=== PATIENT | female | born 1985 | race Caucasian/White ===

== ENCOUNTER 2022-09-28 12:53 | Emergency (ER) | payer BC, SELFPAY ==
[2022-09-28 13:53] VITALS: BP 128/80; PULSE 85; RESP 16; TEMP 36.6; O2SAT 98
--- NOTE | 2022-09-28 15:29 | ED_ITS ---
HPI - General Adult General Time Seen by Provider: 15:29 Date Seen: 09/28/22 Chief complaint: Dizziness/Vertigo Stated complaint: Vertigo Time Seen by Provider: 09/28/22 15:10 Source: patient Mode of arrival: ambulatory Limitations: no limitations History of Present Illness HPI narrative: Patient is a 28 year white female who has had dizziness today, she has really not had any illness recently. She was concerned about her thyroid perhaps being abnormal. She feels better today, she is at this hour rather than this morning, she has taken no medications, has had no fever chills cough, no chest pain, no breathing problem, no neurologic complaints. Does not have a history of vertigo or dizzy problems. she has not had any ear pain Related Data Home Medications Medication Instructions Recorded Confirmed No Known Home Medications 09/28/22 09/28/22 Previous Rx's Medication Instructions Recorded meclizine 50 mg tablet (Antivert) 25 mg PO TID #20 tabs 09/28/22 Allergies Allergy/AdvReac Type Severity Reaction Status Date / Time No Known Drug Allergies Allergy Verified 09/28/22 13:58 Review of Systems Status of ROS: Reports: 6 or more systems reviewed and unremarkable except as noted in History and below PFSH PFSH Social History Smoking Status: Unknown if ever smoked Do you use any of these nicotine containing products: None Second hand tobacco smoke exposure: No How often do you have a drink containing alcohol: never AUDIT-C Alcohol total score: 0 Exam Narrative: Exam Narrative: Objective: Patient's vital signs unremarkable, alert orient x3, noncyanotic, very pleasant HEENT is unremarkable facial asymmetry mouth clear neck is supple chest is clear no rales or wheezing Heart rhythm regular heart murmur Abdomen benign soft Extremities are no edema neurologic nonfocal good peripheral perfusion noted no skin rashes noted skin warm and dry in the periphery Const: Vital Signs, click to edit/add: Vital Signs - 24 hr 09/28/22 13:53 Temperature 97.8 F Pulse Rate [Right Pulse Oximeter] 85 Respiratory Rate 16 Blood Pressure [Ri ght Upper Arm] 128/80 Pulse Oximetry 98 Oxygen Delivery Me thod Room Air Course Vital Signs Vital signs: Initial Vital Signs Temperature 97.8 F 09/28/22 13:53 Temperature Source Temporal Artery Scan 09/28/22 13:53 Pulse Rate 85 09/28/22 13:53 Respiratory Rate 16 09/28/22 13:53 Blood Pressure 128/80 09/28/22 13:53 Blood Pressure Mean 96 09/28/22 13:53 Blood Pressure Position Sitting 09/28/22 13:53 Pulse Oximetry 98 09/28/22 13:53 Oxygen Delivery Method 09/28/22 13:53 Vital Signs Temperature 97.8 F 09/28/22 13:53 Pulse Rate 85 09/28/22 13:53 Respiratory Rate 16 09/28/22 13:53 Blood Pressure 128/80 09/28/22 13:53 Pulse Oximetry 98 09/28/22 13:53 Oxygen Delivery Method 09/28/22 13:53 Temperature 97.8 F 09/28/22 13:53 Pulse Rate 85 09/28/22 13:53 Respiratory Rate 16 09/28/22 13:53 Blood Pressure 128/80 09/28/22 13:53 Pulse Oximetry 98 09/28/22 13:53 Oxygen Delivery Method 09/28/22 13:53 Medical Decision Making MDM Narrative Medical decision making narrative: Patient woke with dizziness today seems better now. She is able to take oral fluids. She has had no COVID/influenza/RSV symptoms. I think at this point be reasonable to check her blood work make sure her electrolytes are and CBC are normal, as well as her TSH. We can call her back with results of these I am going to give her Antivert now she has a ride home. Given that she is not vomiting she is able to the eat and drink adequately I think we can let her go home and observe. Follow up with primary care in next 2-3 days will call in some Antivert medication for as well the pharmacy. Return to ED not improving changes or concerns Addendum: The patient was called back with her TSH is 7.4 she will talk to her regular doctor with about this, and workup her thyroid function. I suspect this is probably not related to her symptomatology today. But she will pursue that further with her regular physician Lab Data Labs: Lab Results 09/28/22 09/28/22 09/28/22 Range/Units 15:46 15:46 15:46 WBC 7.71 (4.50-11.00) K/uL RBC 5.18 (4.00-5.20) m/uL Hgb 15.4 (12.0-16.0) gm/dL Hct 45.9 (33.0-51.0) % MCV 89 (80-100) fL MCH 30 (26-34) pg MCHC 34 (32-36) gm/dL RDW Coeff of Jaye 12.3 (11.5-15.5) % Plt Count 260 (140-440) K/uL Neut % (Auto) 69.8 (42.0-72.0) % Lymph % (Auto) 21.1 (20-44) % Buchanan % (Auto) 7.9 (0.0-11.0) % Eos % (Auto) 0.8 (0.0-7.0) % Baso % (Auto) 0.1 (0.0-3.0) % Neut # (Auto) 5.38 (1.7-7.0) K/uL Lymph # (Auto) 1.63 (0.90-2.90) K/uL Buchanan # (Auto) 0.60 (0.00-0.90) K/UL Eos # (Auto) 0.06 (0.00-0.50) K/uL Baso # (Auto) 0.01 (0.00-0.30) K/uL Sodium 140 (135-149) mmol/L Potassium 4.7 (3.6-5.1) mmol/L Chloride 106 (96-114) mmol/L Carbon Dioxide 26 (20-32) mmol/L BUN 11 (5-24) mg/dL Creatinine 0.7 (0.5-1.5) mg/dL Estimated Creat Clear 98.05 Estimated GFR 113 ml/min Glucose 95 (60-115) mg/dL Calcium 9.5 (8.4-10.6) mg/dL Total Bilirubin 0.5 (0.1-1.5) mg/dL Direct Bilirubin 0.2 (0.0-0.5) mg/dL AST 44 H (12-35) U/L ALT 28 (4-35) U/L Alkaline Phosphatase 79 (40-150) U/L C-Reactive Protein < 0.5 L (0.5-1.0) mg/dL Total Protein 7.4 (6.0-8.3) g/dL Albumin 4.8 (3.3-5.0) g/dL TSH (0.270-4.20) uIU/mL 09/28/22 Range/Units 15:46 WBC (4.50-11.00) K/uL RBC (4.00-5.20) m/uL Hgb (12.0-16.0) gm/dL Hct (33.0-51.0) % MCV (80-100) fL MCH (26-34) pg MCHC (32-36) gm/dL RDW Coeff of Jaye (11.5-15.5) % Plt Count (140-440) K/uL Neut % (Auto) (42.0-72.0) % Lymph % (Auto) (20-44) % Buchanan % (Auto) (0.0-11.0) % Eos % (Auto) (0.0-7.0) % Baso % (Auto) (0.0-3.0) % Neut # (Auto) (1.7-7.0) K/uL Lymph # (Auto) (0.90-2.90) K/uL Buchanan # (Auto) (0.00-0.90) K/UL Eos # (Auto) (0.00-0.50) K/uL Baso # (Auto) (0.00-0.30) K/uL Sodium (135-149) mmol/L Potassium (3.6-5.1) mmol/L Chloride (96-114) mmol/L Carbon Dioxide (20-32) mmol/L BUN (5-24) mg/dL Creatinine (0.5-1.5) mg/dL Estimated Creat Clear Estimated GFR ml/min Glucose (60-115) mg/dL Calcium (8.4-10.6) mg/dL Total Bilirubin (0.1-1.5) mg/dL Direct Bilirubin (0.0-0.5) mg/dL AST (12-35) U/L ALT (4-35) U/L Alkaline Phosphatase (40-150) U/L C-Reactive Protein (0.5-1.0) mg/dL Total Protein (6.0-8.3) g/dL Albumin (3.3-5.0) g/dL TSH 7.410 H (0.270-4.20) uIU/mL Discharge Plan Discharge Clinical Impression: Dizziness Patient Disposition: Home w/ Parent or Adult Condition: Stable Additional Instructions: Light activity, recheck with regular doctor in next 3-4 days, Antivert as needed for dizziness. Push fluids. We will call back with any markedly abnormal lab results. Return to ED sooner problems or concerns. Activity Level: Light activity Discharge Diet: Regular Prescriptions: New Antivert 50 mg tablet 25 mg PO TID Qty: 20 0RF No Action No Known Home Medications Stand Alone Forms: [employer]SAFE Info Instructions
[2022-09-28] MEDS: MECLIZINE HCL 25 MG TABLET PO (15:47)
[2022-09-28 16:16] LABS: Chloride* 106 mmol/L (96-114)
[2022-09-28 16:17] LABS: Potassium* 4.7 mmol/L (3.6-5.1); Sodium* 140 mmol/L (135-149)
[2022-09-28 16:19] LABS: Creatinine* 0.7 mg/dL (0.5-1.5); Est. Creatinine Clearance* 98.05; Estimated Glomerular Filt Rate 113 ml/min
[2022-09-28 16:21] LABS: Blood Urea Nitrogen* 11 mg/dL (5-24); Calcium* 9.5 mg/dL (8.4-10.6); Carbon Dioxide* 26 mmol/L (20-32); Glucose* 95 mg/dL (60-115)
[2022-09-28 16:24] LABS: C Reactive Protein* < 0.5 mg/dL (0.5-1.0)
[2022-09-28 17:42] LABS: Basophils Absolute Auto 0.01 K/uL (0.00-0.30); Basophils Percent Auto 0.1 % (0.0-3.0); Eosinophils Absolute Auto 0.06 K/uL (0.00-0.50); Eosinophils Percent Auto 0.8 % (0.0-7.0); Hematocrit 45.9 % (33.0-51.0); Hemoglobin* 15.4 gm/dL (12.0-16.0); Immature Granulocytes Abs Auto 0.02 K/uL (0.00-0.30); Immature Granulocytes Pct Auto 0.3 %; Lymphocytes Absolute Auto 1.63 K/uL (0.90-2.90); Lymphocytes Percent Auto 21.1 % (20-44); Mean Corpuscular HGB Conc 34 gm/dL (32-36); Mean Corpuscular Hemoglobin 30 pg (26-34); Mean Corpuscular Volume 89 fL (80-100); Monocytes Percent Auto 7.9 % (0.0-11.0); Neutrophils Absolute Auto 5.38 K/uL (1.7-7.0); Neutrophils Percent Auto 69.8 % (42.0-72.0); Platelet Count* 260 K/uL (140-440); RDW Coefficient of Variation % 12.3 % (11.5-15.5); Red Blood Count 5.18 m/uL (4.00-5.20); White Blood Count* 7.71 K/uL (4.50-11.00)
[2022-09-28 17:43] LABS: Albumin* 4.8 g/dL (3.3-5.0)
[2022-09-28 17:46] LABS: Aspartate Amino Transferase* 44 U/L (12-35); Bilirubin Direct* 0.2 mg/dL (0.0-0.5); Bilirubin Total* 0.5 mg/dL (0.1-1.5); Total Protein* 7.4 g/dL (6.0-8.3)
[2022-09-28 17:47] LABS: Alanine Aminotransferase* 28 U/L (4-35); Alkaline Phosphatase* 79 U/L (40-150)
[2022-09-28 17:50] LABS: Slide Review Reflex No
== END 2022-09-28 16:03 | disposition home or self-care (01) ==
LOC: ED 15:50
PROVIDERS: Emergency Provider Family Medicine
DX: R42 Dizziness and giddiness (principal)
CPT/HCPCS: 36415; 80048; 80076; 84443; 85025; 86140; 99283; 99284; A9270

== ENCOUNTER 2023-07-23 13:51 | Outpatient (CLI) | payer BC, SELFPAY | END 2023-07-23 13:52 | disposition home or self-care (01) | LOC: NFLDREF 07-29 11:21 | PROVIDERS: Visit Provider Otolaryngology | DX: R42 Dizziness and giddiness (principal) | CPT/HCPCS: 84443; 86039; 86431; 86618 ==

== ENCOUNTER 2023-08-03 14:48 | Outpatient (CLI) | payer BC, SELFPAY ==
--- NOTE | 2023-08-03 15:15 | CRLHL7_ITS ---
For Patients: As a result of the Cures Act, medical imaging exams and procedure reports are released immediately into your electronic medical record. You may view this report before your referring provider. If you have questions, please contact your health care provider. INDICATION: Dizziness and giddiness. TECHNIQUE: Brain and temporal bone MRI with contrast. The following sequences were obtained: DWI and ADC mapping sequences. Sagittal T1 weighted sequence. Axial FLAIR and AYALA T2 weighted sequences of the whole brain. 3D T2-weighted CISS sequence of the temporal bones. Thin section T1 weighted axial and coronal pre-contrast and post-contrast sequences of the temporal bones. T1 weighted post-contrast sequence(s) of the whole brain. 20 cc of Dotarem gadolinium based contrast agent was used. COMPARISON : None. FINDINGS: The membranous labyrinths are normal in appearance, with no signal abnormality or malformation. No mass or pathologic enhancement within the internal auditory canals or the cerebellopontine angle cisterns. The cisternal and canalicular segments of the 7th/8th cranial nerve complexes are normal in appearance. The other imaged cranial nerve segments are normal in appearance. Brainstem and cerebellum are normal. No evidence of acute ischemia. No evidence of acute or chronic intracranial blood products. No mass or pathologic intracranial enhancement elsewhere within the brain. No intracranial signal abnormality. No hydrocephalus or extra-axial collections. The pituitary gland, parasellar structures and optic chiasm are normal. All the major intracranial vascular structures demonstrate normal flow-related signal. The orbital contents are normal. No calvarial or skull base marrow replacing process. A left maxillary sinus retention cyst. No extracranial soft tissue findings. IMPRESSION: 1. Normal appearance of the internal auditory pathways on high resolution imaging of the temporal bones. No mass or pathologic enhancement within the internal auditory canals or CPA cisterns. Normal appearance of the 7th/8th cranial nerves. 2. No acute ischemia or other acute intracranial pathology. 3. No other significant intracranial abnormalities. Dictated by Josue Jefferson MD @ 08/04/2023 3:37:51 PM (Electronically Signed)
== END 2023-08-03 14:49 | disposition home or self-care (01) ==
LOC: MRI 14:50
PROVIDERS: PCP Family Medicine; Visit Provider Otolaryngology
DX: R42 Dizziness and giddiness (principal)
CPT/HCPCS: 70553; A9575

== ENCOUNTER 2023-08-20 14:30 | Outpatient (RCR) | payer BC, SELFPAY | END 2023-09-20 10:33 | disposition home or self-care (01) | PROVIDERS: PCP Family Medicine; Visit Provider Otolaryngology | DX: H81.11 Benign paroxysmal vertigo, right ear (principal); M54.2 Cervicalgia; Z51.89 Encounter for other specified aftercare | CPT/HCPCS: 95992; 97110; 97140; 97161 ==

== ENCOUNTER 2025-07-26 15:28 | Outpatient (CLI) | payer BC, SELFPAY ==
[2025-07-29 08:56] LABS: HPV Source Cervical
[2025-08-07 12:08] LABS: Pap Test Digital Imaging Done; Pap Test Reviewed by Pathologi Done
== END 2025-07-26 15:29 | disposition home or self-care (01) ==
PROVIDERS: PCP Family Medicine; Visit Provider Family Medicine
DX: Z11.51 Encounter for screening for human papillomavirus (HPV) (principal); Z12.4 Encounter for screening for malignant neoplasm of cervix
CPT/HCPCS: 87624; 87625; 88141; 88142; 88175

== ENCOUNTER 2025-08-10 08:27 | Outpatient (CLI) | payer BC, SELFPAY | END 2025-08-10 08:28 | disposition home or self-care (01) | LOC: NFLDREF 19:38 | PROVIDERS: PCP Family Medicine; Referring Provider Family Medicine; Visit Provider Family Medicine | DX: E78.5 Hyperlipidemia, unspecified (principal) | CPT/HCPCS: 80061; 82947 ==